=== PATIENT | male | born 1950 | race Caucasian/White ===

== ENCOUNTER 2018-09-15 07:15 | Emergency (ER) | payer MEDICARE, BC ==
[~2018-09-15] VITALS: Ht 177.8 cm; Wt 74.8 kg
[2018-09-15 08:12] LABS: BASOPHILS % 0.3 % (0.0-1.0); EOSINOPHILS # (AUTO) 0.1 (0.0-0.4); EOSINOPHILS % 1.1 % (0.0-6.0); HEMATOCRIT 46.4 % (38.2-49.6); HEMOGLOBIN 15.8 g/dL (14.0-18.0); LYMPHOCYTES # (AUTO) 1.8 (1.0-3.2); LYMPHOCYTES % 25.4 % (18.0-39.1); MEAN CORPUSCULAR HGB CONC 34.1 g/dL (31-35); MEAN CORPUSCULAR VOLUME 93.9 fL (81-99); MONOCYTES # (AUTO) 0.5 (0.2-0.8); MONOCYTES % 7.2 % (4.4-11.3); NEUTROPHILS # (AUTO) 4.7 (2.1-6.9); NEUTROPHILS % 65.7 % (38.7-80.0); PLATELET COUNT 194 x10e3/uL (140-360); RED BLOOD COUNT 4.94 x10e6/uL (4.3-5.7); RED CELL DISTRIBUTION WIDTH 11.7 % (11.7-14.4)
[2018-09-15 08:23] LABS: CLARITY,URINE SL CLOUDY (CLEAR); COLOR,URINE YELLOW (YELLOW)
[2018-09-15 08:24] LABS: KETONES,URINE NEGATIVE (NEGATIVE); LEUKOCYTE ESTERASE ,URINE NEGATIVE (NEGATIVE); NITRITE,URINE POSITIVE (NEGATIVE); PROTEIN,URINE DIPSTICK NEGATIVE (NEGATIVE)
[2018-09-15 08:25] LABS: BILIRUBIN,URINE NEGATIVE (NEGATIVE); URINE UROBILINOGEN 0.2 mg/dL (0.2 - 1)
[2018-09-15 08:29] LABS: ANION GAP 15.6 mmol/L (8-16); BLOOD UREA NITROGEN 13 mg/dL (7-26); BUN/CREATININE RATIO 15 (6-25); CARBON DIOXIDE 24 mmol/L (22-29); CHLORIDE 102 mmol/L (98-107); CREATININE, SERUM 0.87 mg/dL (0.72-1.25); EST GLOMERULAR FILTRATION RATE > 60 ML/MIN (60-); GLUCOSE 170 mg/dL (74-118); POTASSIUM 3.6 mmol/L (3.5-5.1); SODIUM 138 mmol/L (136-145)
[2018-09-15 08:42] LABS: BACTERIA,URINE RARE /HPF; EPITHELIAL CELLS,URINE RARE /LPF; WBC,URINE (MAN) 0-5 /HPF (0-5)
[2018-09-15 08:43] LABS: MUCUS,URINE FEW (RARE)
--- NOTE | 2018-09-15 09:02 | Diagnostic Imaging Report ---
PROCEDURE:ABDOMEN 2 VIEW COMPARISON:None. INDICATIONS:CONSTIPATION FINDINGS:Surgical clips in the right upper quadrant from a previous cholecystectomy. No unusual calcifications are identified. Moderate amount of fecal material present within the colon. No dilated loops of bowel are seen. 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 CONCLUSION:No acute abnormality. Jono Fam D.O. Dictated by: Jono Fam D.O. on 09/15/2018 at 9:11 Electronically approved by: Jono Fam D.O. on 09/15/2018 at 9:11
[2018-09-15] MEDS ORDERED: DOCUSATE SODIUM LIQD 100 MG/10 ML UDC NG ONE (09:15)
[2018-09-15] MEDS ORDERED: LACTULOSE SYRUP 20 GM/30 ML UDC PO ONE (09:15)
[2018-09-15] MEDS ORDERED: CEFTRIAXONE SOD 1 GM VIAL IV NR (09:15)
[2018-09-15 09:19] VITALS: BP 132/87
== END 2018-09-15 09:34 | disposition home or self-care (01) ==
LOC: ER 07:15
DX: K62.89 Other specified diseases of anus and rectum (principal); K59.00 Constipation, unspecified; N39.0 Urinary tract infection, site not specified
CPT/HCPCS: 36415; 74019; 80048; 81001; 85025; 99284; J0696

== ENCOUNTER 2018-12-24 07:37 | Inpatient (IN) | payer MEDICARE, BC ==
[~2018-12-24] VITALS: Ht 177.8 cm; Wt 81.6 kg
--- OUTSIDE RECORDS SUMMARY | 2018-12-24 07:39 | XMS REPORT ---
Author Author [facility] Address Unknown Phone Unavailable Care Team Providers Care Electroencephalographic Technologist Name Role Phone Valentina CALLE Unavailable Unavailable Problems This patient has no known problems. Allergies, Adverse Reactions, Alerts This patient has no known allergies or adverse reactions. Medications This patient has no known medications. Results Test Description Test Time Test Comments Text Results Atomic Results Result Comments ABDOMEN 2 VIEW 2018-09-15 09:12:00 [facility] [address] [address] Patient Name: JAIRO FISHER MR #: [id number] : 1950 Age/Sex: 68/M Req #: [id number] Adm Physician: Ordered by: CEFERINO CALLE MD Report #: [id number] Location: ER Room/Bed: Procedure: [id number] DX/ABDOMEN 2 VIEW Exam Date: 09/15/18 Exam Time: 0805 REPORT STATUS: Signed PROCEDURE: ABDOMEN 2 VIEW COMPARISON: None. INDICATIONS: CONSTIPATION FINDINGS: Surgical clips in the right upper quadrant from a previous cholecystectomy. No unusual calcifications are identified. Moderate amount of fecal material present within the colon. No dilated loops of bowel are seen. 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 CONCLUSION: No acute abnormality. Angie Oshea D.O. Dictated by: Angie Oshea D.O. on 09/15/2018 at 9:11 Electronically approved by: Angie Oshea D.O. on 09/15/2018 at 9:11 Dictated By: ANGIE OSHEA DO 1 Transcribed By: HAWA on 09/15/18911 COPY TO: CEFERINO CALLE MD
[2018-12-24 08:21] LABS: BASOPHILS % 0.2 % (0.0-1.0); EOSINOPHILS # (AUTO) 0.1 (0.0-0.4); EOSINOPHILS % 0.8 % (0.0-6.0); HEMATOCRIT 39.2 % (38.2-49.6); LYMPHOCYTES # (AUTO) 1.1 (1.0-3.2); LYMPHOCYTES % 9.5 % (18.0-39.1); MEAN CORPUSCULAR HEMOGLOBIN 31.5 pg (28-32); MEAN CORPUSCULAR HGB CONC 33.2 g/dL (31-35); MEAN CORPUSCULAR VOLUME 94.9 fL (81-99); MONOCYTES # (AUTO) 0.7 (0.2-0.8); MONOCYTES % 6.3 % (4.4-11.3); NEUTROPHILS # (AUTO) 9.2 (2.1-6.9); NEUTROPHILS % 82.8 % (38.7-80.0); PLATELET COUNT 167 x10e3/uL (140-360); RED BLOOD COUNT 4.13 x10e6/uL (4.3-5.7); RED CELL DISTRIBUTION WIDTH 12.8 % (11.7-14.4)
[2018-12-24 08:35] LABS: INR 0.97; PROTHROMBIN TIME 13.8 seconds (11.9-14.5)
[2018-12-24 08:47] LABS: ALANINE AMINOTRANSFERASE 21 IU/L (0-55); ALBUMIN 3.7 g/dL (3.5-5.0); ALBUMIN/GLOBULIN RATIO 1.4 (0.8-2.0); ALKALINE PHOSPHATASE 47 IU/L (40-150); ANION GAP 14.7 mmol/L (8-16); BLOOD UREA NITROGEN 8 mg/dL (7-26); BUN/CREATININE RATIO 10 (6-25); CALCIUM 8.7 mg/dL (8.4-10.2); CARBON DIOXIDE 22 mmol/L (22-29); CHLORIDE 105 mmol/L (98-107); CREATININE, SERUM 0.84 mg/dL (0.72-1.25); EST GLOMERULAR FILTRATION RATE > 60 ML/MIN (60-); GLUCOSE 151 mg/dL (74-118); POTASSIUM 3.7 mmol/L (3.5-5.1); SODIUM 138 mmol/L (136-145)
--- NOTE | 2018-12-24 08:52 | NUR ---
Dr. Montano places a call to Dr. Recinos.
--- NOTE | 2018-12-24 09:40 | NUR ---
Cream applied to skin to soothe irritation from electrode stickers.
--- NOTE | 2018-12-24 10:35 | NUR ---
500 cc simple irrigation of the womack performed. 700 cc output noted prior to irrigation.
--- NOTE | 2018-12-24 12:41 | NUR ---
Call placed to greenhouse worker regarding continous irrigation equipment.
--- NOTE | 2018-12-24 13:00 | NUR ---
CBI initiated at this time.
[2018-12-24 15:52] LABS: BASOPHILS % 0.1 % (0.0-1.0); EOSINOPHILS % 0.5 % (0.0-6.0); HEMATOCRIT 33.6 % (38.2-49.6); HEMOGLOBIN 11.6 g/dL (14.0-18.0); LYMPHOCYTES # (AUTO) 1.5 (1.0-3.2); LYMPHOCYTES % 16.7 % (18.0-39.1); MEAN CORPUSCULAR HEMOGLOBIN 32.3 pg (28-32); MEAN CORPUSCULAR HGB CONC 34.5 g/dL (31-35); MEAN CORPUSCULAR VOLUME 93.6 fL (81-99); MONOCYTES # (AUTO) 0.6 (0.2-0.8); MONOCYTES % 7.1 % (4.4-11.3); NEUTROPHILS # (AUTO) 6.7 (2.1-6.9); NEUTROPHILS % 75.5 % (38.7-80.0); PLATELET COUNT 141 x10e3/uL (140-360); RED BLOOD COUNT 3.59 x10e6/uL (4.3-5.7); RED CELL DISTRIBUTION WIDTH 12.7 % (11.7-14.4)
[2018-12-24 16:17] LABS: ALANINE AMINOTRANSFERASE 18 IU/L (0-55); ALBUMIN 3.2 g/dL (3.5-5.0); ALBUMIN/GLOBULIN RATIO 1.9 (0.8-2.0); ALKALINE PHOSPHATASE 42 IU/L (40-150); ANION GAP 6.6 mmol/L (8-16); BLOOD UREA NITROGEN 6 mg/dL (7-26); BUN/CREATININE RATIO 9 (6-25); CALCIUM 8.4 mg/dL (8.4-10.2); CARBON DIOXIDE 24 mmol/L (22-29); CHLORIDE 109 mmol/L (98-107); EST GLOMERULAR FILTRATION RATE > 60 ML/MIN (60-); GLUCOSE 105 mg/dL (74-118); POTASSIUM 3.6 mmol/L (3.5-5.1); SODIUM 136 mmol/L (136-145)
--- NOTE | 2018-12-24 18:25 | NUR ---
recvd patient from ER, AAOx3, at bed side, patient not on CBI this time when he transferred from ER, called linen room houseperson to get tubing to start CBI, Patient not in any distress
[2018-12-24 19:00] VITALS: BP_SYST 139; BP_DIAS 71; BP_DIAS 79
--- NOTE | 2018-12-24 19:00 | NUR ---
received report from day nurse. patient is resting comfortably in bed. continues on continuous bladder irrigation. bed is in lowest position and call light is within reach. will continue to monitor patient.
[2018-12-24] MEDS ORDERED: DIOVAN160 MG PO (20:00)
[2018-12-24] MEDS ORDERED: METFORMIN HCL500 MG PO (20:00)
[2018-12-24] MEDS ORDERED: MECLIZINE HCL12.5 MG PO (20:00)
[2018-12-24] MEDS ORDERED: VITAMIN D32000 UNIT PO (20:00)
[2018-12-24] MEDS ORDERED: ACETAMINOPHEN325 M1 PO (20:00)
[2018-12-24] MEDS ORDERED: ATORVASTATIN CA20 MG PO (20:00)
[2018-12-24] MEDS ORDERED: ACETAMINOPHEN 325 MG TAB PO PRN (20:30)
--- NOTE | 2018-12-24 20:38 | NUR ---
Attending physician contacted regarding restarting of home medication. Attending agrees to have home medications restarted. Also received an order to place a consult to Dr Recinos. 's answering service notified of consult and will notify physician.
--- NOTE | 2018-12-24 20:43 | NUR ---
Consulted physician called back, received new orders.
--- NOTE | 2018-12-24 20:45 | NUR ---
Per urologist it is ok to manually irrigate bladder.
[2018-12-24] MEDS: ATORVASTATIN 20 MG TAB PO SCH (21:00)
--- NOTE | 2018-12-24 21:00 | NUR ---
patient yelling out in room complaining of pain in the bladder. bladder has been manually irrigated and no clots are present. Urologist notified. Received new order for pain medications. Will continue to monitor patient for pain.
--- NOTE | 2018-12-24 21:30 | NUR ---
Patient continues to yell out in pain after receiving pain medications. Urologist notified. Received information from urologist on technique that could be employed when manually irrigating the patient's bladder. Urologist's technique employed with great success. patient is pain free and clot's can be seen in the catheter bag. Gibbs is patent and irrigation solution is flowing. will continue to monitor patient for pain.
[2018-12-24] MEDS: PHENAZOPYRIDINE HCL 100 MG TAB PO SCH (22:48)
[2018-12-24] MEDS: ACETAMINOPHEN/CODEINE 300MG - 30MG TAB PO PRN (22:48)
[2018-12-25] VITALS (7 sets, daily range): BP systolic 103–138; BP diastolic 56–74
[2018-12-25 05:02] LABS: BASOPHILS % 0.2 % (0.0-1.0); EOSINOPHILS % 0.1 % (0.0-6.0); HEMOGLOBIN 11.4 g/dL (14.0-18.0); LYMPHOCYTES # (AUTO) 1.2 (1.0-3.2); LYMPHOCYTES % 8.9 % (18.0-39.1); MEAN CORPUSCULAR HEMOGLOBIN 31.2 pg (28-32); MEAN CORPUSCULAR HGB CONC 33.5 g/dL (31-35); MEAN CORPUSCULAR VOLUME 93.2 fL (81-99); MONOCYTES # (AUTO) 0.9 (0.2-0.8); MONOCYTES % 6.7 % (4.4-11.3); NEUTROPHILS # (AUTO) 10.9 (2.1-6.9); NEUTROPHILS % 83.7 % (38.7-80.0); PLATELET COUNT 123 x10e3/uL (140-360); RED BLOOD COUNT 3.65 x10e6/uL (4.3-5.7); RED CELL DISTRIBUTION WIDTH 12.5 % (11.7-14.4)
[2018-12-25 05:22] LABS: ALANINE AMINOTRANSFERASE 18 IU/L (0-55); ALBUMIN 3.2 g/dL (3.5-5.0); ALBUMIN/GLOBULIN RATIO 1.5 (0.8-2.0); ALKALINE PHOSPHATASE 42 IU/L (40-150); ANION GAP 11.6 mmol/L (8-16); BLOOD UREA NITROGEN 7 mg/dL (7-26); BUN/CREATININE RATIO 10 (6-25); CALCIUM 8.5 mg/dL (8.4-10.2); CARBON DIOXIDE 22 mmol/L (22-29); CHLORIDE 107 mmol/L (98-107); CREATININE, SERUM 0.68 mg/dL (0.72-1.25); EST GLOMERULAR FILTRATION RATE > 60 ML/MIN (60-); GLUCOSE 141 mg/dL (74-118); POTASSIUM 3.6 mmol/L (3.5-5.1); SODIUM 137 mmol/L (136-145)
--- NOTE | 2018-12-25 07:00 | NUR ---
report given to day nurse. patient is resting comfortably in bed. no complaints of pain or discomfort noted. bed is in lowest position and call degroot is within reach.
[2018-12-25] MEDS ORDERED: BELLADONNA/OPIUM 30 MG SUPP RC PRN (07:15)
[2018-12-25] MEDS: ACETAMINOPHEN/CODEINE 300MG - 30MG TAB PO PRN (08:03)
[2018-12-25] MEDS: METFORMIN HCL 500 MG TAB PO SCH (08:03)
[2018-12-25] MEDS ORDERED: NON-FORMULARY MEDICATION (Cholecalciferol (Vitamin D3) (Vitamin D3) 1 TAB) PO SCH (09:00)
[2018-12-25] MEDS: PHENAZOPYRIDINE HCL 100 MG TAB PO SCH ×2 (09:02→21:14)
[2018-12-25] MEDS: MECLIZINE HCL 12.5 MG TAB PO SCH (09:02)
[2018-12-25] MEDS: VALSARTAN 160 MG TAB PO SCH (09:02)
[2018-12-25] MEDS: CHOLECALCIFEROL 1,000 UNIT TAB PO SCH (09:02)
[2018-12-25] MEDS: SODIUM CHLORIDE 0.45% 1,000 ML IV SCH ×2 (10:51→21:09)
--- NOTE | 2018-12-25 10:52 | NUR ---
patient transferred to med-surg [address] Recinos. all personal belongings transferred. vitals stable with no distress. family at BS.
[2018-12-25] MEDS: CEFTRIAXONE SOD 2 GM/NS 100 ML 100 ML IV SCH (11:36)
--- NOTE | 2018-12-25 19:50 | NUR ---
CONTINUOUS BLADDER IRRIGATION INFUSING, NO CLOTS NOTED AND PATIENT DENIES PAIN. CALL LIGHT WITHIN EASY REACH, INSTRUCTED TO CALL FOR ASSISTANCE NEEDED.
[2018-12-25] MEDS: ATORVASTATIN 20 MG TAB PO SCH (21:14)
--- NOTE | 2018-12-25 23:30 | NUR ---
PATIENT IS ASLEEP, HE'S EASY TO AROUSE. CONTINUOUS BLADDER INFUSING WITH SOME CLOTS NOTED. PATIENT DENIES PAIN, NO ACUTE DISTRESS OBSERVED.
[2018-12-26 04:00] VITALS: BP 122/71
--- NOTE | 2018-12-26 04:15 | NUR ---
CONDITION STABLE WITHOUT DISTRESS, CBI INFUSING WITH URINE COLOR CHANGING TO ORANGE.
[2018-12-26 06:20] LABS: BASOPHILS % 0.2 % (0.0-1.0); EOSINOPHILS # (AUTO) 0.2 (0.0-0.4); EOSINOPHILS % 2.1 % (0.0-6.0); HEMATOCRIT 32.2 % (38.2-49.6); LYMPHOCYTES # (AUTO) 1.8 (1.0-3.2); LYMPHOCYTES % 18.9 % (18.0-39.1); MEAN CORPUSCULAR HGB CONC 34.2 g/dL (31-35); MEAN CORPUSCULAR VOLUME 93.6 fL (81-99); MONOCYTES # (AUTO) 0.8 (0.2-0.8); MONOCYTES % 8.5 % (4.4-11.3); NEUTROPHILS # (AUTO) 6.7 (2.1-6.9); PLATELET COUNT 131 x10e3/uL (140-360); RED BLOOD COUNT 3.44 x10e6/uL (4.3-5.7); RED CELL DISTRIBUTION WIDTH 12.8 % (11.7-14.4)
[2018-12-26 06:40] LABS: ANION GAP 11.8 mmol/L (8-16); BLOOD UREA NITROGEN 8 mg/dL (7-26); BUN/CREATININE RATIO 11 (6-25); CALCIUM 8.6 mg/dL (8.4-10.2); CARBON DIOXIDE 23 mmol/L (22-29); CHLORIDE 108 mmol/L (98-107); CREATININE, SERUM 0.73 mg/dL (0.72-1.25); EST GLOMERULAR FILTRATION RATE > 60 ML/MIN (60-); GLUCOSE 114 mg/dL (74-118); POTASSIUM 3.8 mmol/L (3.5-5.1); SODIUM 139 mmol/L (136-145)
[2018-12-26 08:48] VITALS: BP 112/65
[2018-12-26] MEDS: VALSARTAN 160 MG TAB PO SCH (09:00)
[2018-12-26 09:18] VITALS: BP 112/65
[2018-12-26] MEDS: SODIUM CHLORIDE 0.45% 1,000 ML IV SCH ×3 (09:18→18:07)
[2018-12-26] MEDS: PHENAZOPYRIDINE HCL 100 MG TAB PO SCH ×3 (09:18→20:35)
[2018-12-26] MEDS: CHOLECALCIFEROL 1,000 UNIT TAB PO SCH (09:18)
[2018-12-26] MEDS: CEFTRIAXONE SOD 2 GM/NS 100 ML 100 ML IV SCH (09:18)
[2018-12-26] MEDS: METFORMIN HCL 500 MG TAB PO SCH (09:18)
[2018-12-26] MEDS: MECLIZINE HCL 12.5 MG TAB PO SCH (09:18)
[2018-12-26 12:30] VITALS: BP 110/71
[2018-12-26] MEDS ORDERED: MAGNESIUM HYDROXIDE 30 ML UDC PO PRN (13:30)
[2018-12-26] MEDS ORDERED: BISACODYL 10 MG SUPP PR PRN (13:30)
[2018-12-26] MEDS ORDERED: MAGNESIUM HYDROXIDE 30 ML UDC PO NR (13:30)
--- NOTE | 2018-12-26 13:43 | NUR ---
SOCIAL WORK INITIAL ASSESSMENT Recorder Of Deeds to bedside to discuss plan of care with patient/family. CM/SW role and care transitions discussed. Anticipated discharge plan discussed along with duration of care. CM/SW discussed patients right to make decisions in care. CM/SW work hours given. Patient lives: IN HOUSE WITH MATT [phone] CELL [phone] Admit/Transfer: VIA ED POA/Emergency contact: MATT [phone] HOME OR CELL IS [phone] Current/Previous Home Health: NONE PCP/Follow-up Care: DENI Current/Previous DME: CATHETER BAG Other Services: NONE Employment Status: RETIRED Areas of Concerns: NONE Referral Needs: NONE Education Needs: NONE IMM/MORAN given and signed (if applicable): IMM Goal for discharge: RETURN HOME WITH EDUCATION ON NEEDS OF CATHETER CM/SW left business card at the bedside with contact information. Name and number was also written on the patients whiteboard. Patient verbalized understanding of discussion. CM will follow-up with ongoing discharge and transition of care needs.
[2018-12-26] MEDS: SENNOSIDES 8.6 MG TAB PO SCH ×2 (14:31→17:35)
[2018-12-26 17:17] VITALS: BP 127/65
--- NOTE | 2018-12-26 19:00 | NUR ---
Report received and rounds completed, no complaints or concerns at this time. In bed with family at bedside.
[2018-12-26 20:00] VITALS: BP 116/65
[2018-12-26] MEDS: ATORVASTATIN 20 MG TAB PO SCH (20:35)
[2018-12-26] MEDS: ACETAMINOPHEN/CODEINE 300MG - 30MG TAB PO PRN (20:47)
[2018-12-27] VITALS (8 sets, daily range): BP systolic 108–140; BP diastolic 57–82
--- NOTE | 2018-12-27 | NUR ---
CBI flowing, womack remains patent with orange urine with small clots. Tolerating well. No c/o or concerns at this time. at bedside.
[2018-12-27] MEDS: ACETAMINOPHEN/CODEINE 300MG - 30MG TAB PO PRN ×4 (00:40→21:50)
--- NOTE | 2018-12-27 05:19 | NUR ---
Tape securing womack cath reinforced and womack care performed, tolerated well. CBI flowing with light dominik with clots, no obstructions or complaints. Will continue to monitor. Addendum: 12/27/18 at 0523 by Katya Uriostegui RN CBI flowing, noted yellow/orange urine in tube with small clots.
[2018-12-27] MEDS: METFORMIN HCL 500 MG TAB PO SCH (08:03)
[2018-12-27] MEDS: SENNOSIDES 8.6 MG TAB PO SCH ×2 (08:03→16:36)
[2018-12-27] MEDS: MECLIZINE HCL 12.5 MG TAB PO SCH (08:03)
[2018-12-27] MEDS: CHOLECALCIFEROL 1,000 UNIT TAB PO SCH (08:03)
[2018-12-27] MEDS: VALSARTAN 160 MG TAB PO SCH (08:03)
[2018-12-27] MEDS: PHENAZOPYRIDINE HCL 100 MG TAB PO SCH ×3 (08:03→21:50)
[2018-12-27] MEDS: CEFTRIAXONE SOD 2 GM/NS 100 ML 100 ML IV SCH (08:03)
[2018-12-27] MEDS ORDERED: PEG (High)/E-LYTE SOLN 4,000 ML BTL PO PRN (10:30)
[2018-12-27] MEDS ORDERED: MINERAL OIL 132 ML BTL PR PRN (10:30)
--- NOTE | 2018-12-27 11:11 | NUR ---
IRRIGATION STOPPED PER MD ELLIS ORDERS. INSTRUCTED PT TO CALL IF PAIN OCCURRED URINE IS LOOKING CLEAR ORANGE IN COLOR
[2018-12-27] MEDS: ATORVASTATIN 20 MG TAB PO SCH (21:50)
--- NOTE | 2018-12-27 21:50 | NUR ---
PATIENT C/O PAIN TO THE PENIS WITH PAIN SCORE #5, MEDICATED WITH TYLENOL #3 ORDERED. ASSISTED WITH ADLS, FAMILY MEMBERS VISITING WITH THE PATIENT AT THIS TIME.
[2018-12-28 00:57] VITALS: BP 118/58
--- NOTE | 2018-12-28 01:11 | NUR ---
WALKING ROUNDS MADE, PATIENT IS SOUNDLY ASLEEP WITHOUT RESPIRATORY DISTRESS. URINE COLOR REMAINS ORANGE, CALL LIGHT WITHIN EASY REACH.
--- NOTE | 2018-12-28 04:13 | NUR ---
PATIENT ENCOURAGED TO REPOSITION IN BED, HE C/O MILD PAIN TO THE PENIS WITH PAIN SCORE #2. MEDICATED WITH TYLENOL #3 ORDERED, CALL LIGHT WITHIN EASY REACH AND HIS IS AT THE BEDSIDE.
[2018-12-28 04:41] VITALS: BP 123/70
[2018-12-28 07:03] LABS: BASOPHILS % 0.2 % (0.0-1.0); EOSINOPHILS # (AUTO) 0.2 (0.0-0.4); EOSINOPHILS % 2.5 % (0.0-6.0); HEMATOCRIT 32.2 % (38.2-49.6); HEMOGLOBIN 10.8 g/dL (14.0-18.0); LYMPHOCYTES # (AUTO) 1.8 (1.0-3.2); LYMPHOCYTES % 21.6 % (18.0-39.1); MEAN CORPUSCULAR HEMOGLOBIN 31.6 pg (28-32); MEAN CORPUSCULAR HGB CONC 33.5 g/dL (31-35); MEAN CORPUSCULAR VOLUME 94.2 fL (81-99); MONOCYTES # (AUTO) 0.6 (0.2-0.8); MONOCYTES % 7.7 % (4.4-11.3); NEUTROPHILS # (AUTO) 5.5 (2.1-6.9); NEUTROPHILS % 67.8 % (38.7-80.0); PLATELET COUNT 169 x10e3/uL (140-360); RED BLOOD COUNT 3.42 x10e6/uL (4.3-5.7); RED CELL DISTRIBUTION WIDTH 12.4 % (11.7-14.4)
[2018-12-28 07:17] LABS: ANION GAP 9.3 mmol/L (8-16); BLOOD UREA NITROGEN 10 mg/dL (7-26); BUN/CREATININE RATIO 14 (6-25); CALCIUM 8.5 mg/dL (8.4-10.2); CARBON DIOXIDE 26 mmol/L (22-29); CHLORIDE 108 mmol/L (98-107); EST GLOMERULAR FILTRATION RATE > 60 ML/MIN (60-); GLUCOSE 105 mg/dL (74-118); POTASSIUM 3.3 mmol/L (3.5-5.1); SODIUM 140 mmol/L (136-145)
[2018-12-28 08:33] VITALS: BP 137/71
[2018-12-28] MEDS: METFORMIN HCL 500 MG TAB PO SCH (08:55)
[2018-12-28] MEDS: SENNOSIDES 8.6 MG TAB PO SCH ×2 (08:55→16:41)
[2018-12-28] MEDS: MECLIZINE HCL 12.5 MG TAB PO SCH (08:55)
[2018-12-28] MEDS: CEFTRIAXONE SOD 2 GM/NS 100 ML 100 ML IV SCH (08:55)
[2018-12-28] MEDS: PHENAZOPYRIDINE HCL 100 MG TAB PO SCH ×2 (08:56→14:20)
[2018-12-28] MEDS: VALSARTAN 160 MG TAB PO SCH (08:56)
[2018-12-28] MEDS: CHOLECALCIFEROL 1,000 UNIT TAB PO SCH (08:56)
[2018-12-28] MEDS: DOCUSATE SODIUM 100 MG CAP PO SCH ×2 (09:01→16:41)
[2018-12-28] MEDS: ACETAMINOPHEN/CODEINE 300MG - 30MG TAB PO PRN ×2 (09:01→14:41)
--- NOTE | 2018-12-28 09:23 | NUR ---
IMM EXPLAINED, SIGNED BY PT'S (PT LEGALLY BLIND) AND PLACED ON CHART COPY TO PT IN CARE TRANSITION FOLDER
--- NOTE | 2018-12-28 10:06 | NUR ---
CORNELL D/C AT THIS TIME. PT TOLERATED WELL. INSTRUCTED TO USE URINAL WITH EACH VOID. WILL COLLECT FOR SERIAL URINES. PT AND SPOUSE VERBALIZE UNDERSTANDING.
[2018-12-28 11:18] VITALS: BP 137/71
[2018-12-28] MEDS ORDERED: POTASSIUM CHLORIDE 10MEQ EA PO ONE (11:30)
--- NOTE | 2018-12-28 12:32 | NUR ---
PT VOIDED AT THIS TIME.
[2018-12-28 12:36] VITALS: BP 125/68
[2018-12-28 16:16] VITALS: BP 114/66
--- NOTE | 2018-12-28 17:38 | NUR ---
SPOKE TO DR. Jessie ZUNIGA STATES PT CAN D/C HOME, HE HAS RX FOR PAIN AND ANTIBIOTICS AT HOME. LEFT MESSAGE FOR DR. LORD FOR D/C HOME ORDERS AWAITING CALL BACK.
--- NOTE | 2018-12-28 18:13 | NUR ---
RECEIVED CALL BACK FROM DR. LORD. D/C ORDER RECEIVED.
--- NOTE | 2018-12-28 18:27 | NUR ---
LEFT AC IV D/C AND PRESSURE DRESSING APPLIED. D/C INSTRUCTIONS GIVEN. PT AND SPOUSE VERBALIZE UNDERSTANDING. PT AWAITING RIDE HOME.
--- NOTE | 2018-12-30 07:16 | Discharge Summary ---
FINAL DIAGNOSES: 1. Gross hematuria, had been persistent, status post TURP, outpatient procedure. 2. Urinary tract infection. 3. Acute blood loss anemia. 4. Enlarged prostate with urinary retention. SUMMARY: The patient is a 68 years old male with urinary retention and enlarged prostate, status post TURP procedure, outpatient procedure. Postoperatively, the patient subsequently went home with a Gibbs catheter, but with gross hematuria. The patient was having difficulty urinating even with a Gibbs catheter. He developed clotting and caused significant pain. The patient came to the hospital. Continuous irrigation of the urinary bladder was initiated and continued. Subsequently, his Gibbs catheter discontinued and his hematuria is improving. He had acute blood loss anemia, secondary to hematuria, but he did not require blood transfusion. The patient was stable. Subsequently, the patient discharged home. Continue with home medication, antibiotic, pain medication, and medication for his prostate. The patient is stable. He will follow up with his urologist, Dr. Kiet Recinos. Dr. Kiet Recinos knows the patient very well, as he did the procedures and also continues to care for the patient here as a disaster recovery consultant. MD ARJUN Garcias/CRYSTAL /[id number]
== END 2018-12-28 19:01 | disposition home or self-care (01) | DRG 696 ==
LOC: ER 07:37 → ERHOLD 16:07 → IMCU 18:15 → OBSVTOIN 12-25 09:54 → MED/SURG 12-25 10:51
PROVIDERS: ADMIT Internal Medicine; ATTEND Internal Medicine
DX: R31.0 Gross hematuria (principal); D62 Acute posthemorrhagic anemia; N40.1 Benign prostatic hyperplasia with lower urinary tract symptoms; R33.8 Other retention of urine; Z87.891 Personal history of nicotine dependence; Z88.1 Allergy status to other antibiotic agents; Z88.8 Allergy status to other drugs, medicaments and biological substances; Z98.890 Other specified postprocedural states; I10 Essential (primary) hypertension; E11.9 Type 2 diabetes mellitus without complications; K59.00 Constipation, unspecified; D69.6 Thrombocytopenia, unspecified; N39.0 Urinary tract infection, site not specified; Z79.84 Long term (current) use of oral hypoglycemic drugs
CPT/HCPCS: 36415; 80048; 80053; 82948; 85025; 85610; 86850; 86900; 93005; 97139; 99284; G0378; J0696

== ENCOUNTER → 2019-05-03 | Outpatient (CLI) | payer MEDICARE, BC ==
[~2019-05-03] MED LIST: ACETAMINOPHEN325 M1 PO; ATORVASTATIN CA20 MG PO; DIOVAN160 MG PO; MECLIZINE HCL12.5 MG PO; METFORMIN HCL500 MG PO; VITAMIN D32000 UNIT PO
--- NOTE | 2019-05-03 14:14 | Diagnostic Imaging Report ---
Exam: KUB - 2 views Clinical History: Renal calculus. Comparison None. Findings: Bowel gas partially obscures visualization of the kidneys. There is a 3 mm calcification overlying the left upper kidney. No evidence of calcification overlying the right kidney or the expected course of the ureters. Nonobstructive bowel gas pattern. No acute osseous abnormality. Impression: Possible 3 mm left upper pole renal stone. Signed by: Dr. wGen Menon MD on 05/03/2019 2:10 PM
== END ==
LOC: RAD 13:05
PROVIDERS: ATTEND Urology
DX: N20.0 Calculus of kidney (principal)
CPT/HCPCS: 74018

== ENCOUNTER 2019-12-06 22:51 | Emergency (ER) | payer MEDICARE, BC ==
[~2019-12-06] VITALS: Ht 177.8 cm; Wt 69.4 kg
[2019-12-06] MEDS ORDERED: TRIMETHOPRIM/SULFAMETHOXAZOLE 160-800 MG TAB ONE (23:52)
[2019-12-07] MEDS ORDERED: TRIMETHOPRIM/SULFAMETHOXAZOLE 160-800 MG TAB PO ONE
--- OUTSIDE RECORDS SUMMARY | 2019-12-07 19:31 | XMS REPORT | Encounter Summary ---
Author Organization Unknown Address [address] [place] [address] Phone [phone] Care Team Providers Care Radio Interference Expert Name Role Phone Dr. Onel Rolle 3 [phone] Onel Rolle MD 3 [phone] Tk Alejandra MD 105 [phone] Cam Luther MD 107 [phone] Kiet Recinos MD 115 [phone] Reason for Visit Type 2 diabetes mellitus; Essential hypertension; Hyperlipidemia; Dizziness; foot problem Instructions 1. Body mass index 20-24 - normal 2. Hyperlipidemia atorvastatin 20 mg tablet lipid panel, serum 3. Vertigo meclizine 25 mg tablet 4. Type 2 diabetes mellitus metformin 500 mg tablet diabetic ophthalmology referral HbA1c (hemoglobin A1c), blood CMP, serum or plasma 5. Essential hypertension valsartan 160 mg tablet 6. Dizziness 7. Acute urinary tract infection Discussion Note: None recorded. Patient educational handouts: No information available. Plan of Care Patient Instructions continue al meds /exercise/drink 8 cups water /d Reminders Provider Appointments Return to Office on or around 07/20/2019 Onel Rolle MD Lab Lipid Panel, Serum 04/19/2019 [facility] HbA1C (Hemoglobin a1C), Blood 04/19/2019 [facility] CMP, Serum or Plasma 04/19/2019 [facility] Referral Diabetic Ophthalmology Referral 04/19/2019 Procedures None recorded. Surgeries None recorded. Imaging None recorded. Medications Name Start Date atorvastatin 20 mg tablet Take 1 tablet every day by oral route. meclizine 25 mg tablet Take 2 tablets twice a day by oral route. metformin 500 mg tablet Take 1 tablet every day by oral route for 90 days. One-A-Day Men's 50 Plus 400 mcg-20 mcg-370 mcg tablet Take 1 tablet every day by oral route. sulfamethoxazole 800 mg-trimethoprim 160 mg tablet take 1 tablet twice daily (down to the last 2 pills) valsartan 160 mg tablet TAKE 1 TABLET BY MOUTH EVERY DAY DUE Vitamin D3 2,000 unit capsule Take 1 capsule every day by oral route. Medications Administered None recorded. Vitals Height Weight BMI Blood Pressure 5 ft 9 in 157 lbs 23.2 kg/m2 118/78 mm[Hg] Lab Results None recorded. Allergies Code Code System Name Reaction Severity Status Onset 39130 RxNorm Levofloxacin Active 09/15/2018 64847 RxNorm Lisinopril Active 09/15/2018 823200 RxNorm Levaquin Active Problems Name Status Onset Date Source Type 2 Diabetes Mellitus Active Hyperlipidemia Active Essential Hypertension Active Blood in Urine Active External Dizziness Active Procedures Date Name Performed by 03/03/2019 Procedure on Tooth Information not available 12/23/2018 Prostatectomy (Turp) Information not available 10/03/2016 Eye Surgery Information not available 11/03/2014 Colonoscopy Information not available Vaccine List Vaccine Type influenza, high dose seasonal 08/21/2017 07/08/20180.5 mL pneumococcal conjugate PCV 13 10/07/20180.5 mL pneumococcal polysaccharide PPV23 09/03/2017 zoster subunit 04/06/20180.5 mL 11/11/20180.5 mL Social History Smoking Status Never Smoker Past Encounters 04/19/2019 Body Mass Index 20-24 - Normal; Hyperlipidemia; Vertigo; Type 2 Diabetes Mellitus; Essential Hypertension; Dizziness; Acute Urinary Tract Infection Onel Rolle MD: [address] [place] [phone], Ph. History of Present Illness Note:f/u chronic conditions,compliant with meds ,walks 30 mins /d<div> uti-dehydration [facility] 04/10-08/21,has urology f/u 3 days-asymptomatic</div> Review of Systems:ROS as noted in the HPI Review of Systems None recorded. Physical Exam Cardiology Exam Reported By: Patient Constitutional: General Appearance: well-developed, appears stated age. Level of Distress: comfortable Psychiatric: Mental Status: alert, normal affect. Orientation: oriented to time, place, and person. Insight: good judgment Eyes: Lids and Conjunctivae: non-injected, anicteric, no discharge, no pallor, no arcus senilis, no xanthelasma. Pupils: PERRLA Neck: Neck: supple, trachea midline, no masses, FROM. Carotid Arteries: bilateral normal upstroke, no bruits, no thrills. Cervical Lymph Nodes: non tender, not enlarged. Thyroid: not enlarged, non tender, no nodules Lungs: Respiratory Effort: unlabored. Chest Exam: normal curvature, no thoracic deformity, no chest wall tenderness. Percussion: resonant. Auscultation: clear, no wheezing, no rales, no rhonchi Cardiovascular: Precordial Exam: non displaced focal PMI, no heaves, no precordial thrills. Rate And Rhythm: regular. Heart Sounds: normal S1, physiologically split S2, no rub, no gallop, no click. Systolic Murmur: not heard. Diastolic Murmur: not heard. Extremities: no cyanosis, no edema, no peripheral signs of emboli Skin: Inspection and Palpation: warm and dry. Nails: no clubbing
--- OUTSIDE RECORDS SUMMARY | 2019-12-07 19:31 | XMS REPORT | Encounter Summary ---
Author Organization Unknown Address [address] [place] [address] Phone [phone] Care Team Providers Care Ppap Coordinator Name Role Phone Dr. Onel Rolle 3 [phone] Onel Rolle MD 3 [phone] Luis Alberto Alejandra MD 105 [phone] Cam Luther MD 107 [phone] Kiet Recinos MD 115 [phone] Reason for Visit Type 2 diabetes mellitus; Hyperlipidemia; Essential hypertension Instructions 1. Type 2 diabetes mellitus metformin 500 mg tablet HbA1c (hemoglobin A1c), blood CMP, serum or plasma lipid panel, serum 2. Essential hypertension valsartan 160 mg tablet 3. Influenza vaccination Fluzone High-Dose (PF) 180 mcg/0.5 mL intramuscular syringe 4. Body mass index 25-29 - overweight learning about healthy weight 5. Hyperlipidemia high cholesterol: care instructions Discussion Note: None recorded. Plan of Care Patient Instructions continue meds/diet/exercise Reminders Provider Appointments Return to Office on or around 10/25/2019 Onel Rolle MD Lab HbA1C (Hemoglobin a1C), Blood 07/26/2019 [facility] CMP, Serum or Plasma 07/26/2019 [facility] Lipid Panel, Serum 07/26/2019 [facility] Referral None recorded. Procedures None recorded. Surgeries None recorded. Imaging [...] 1 tablet every day by oral route. valsartan 160 mg tablet TAKE 1 TABLET BY MOUTH EVERY DAY DUE Vitamin D3 2,000 unit capsule Take 1 capsule every day by oral route. Medications Administered None recorded. Vitals Height Weight BMI Blood Pressure 5 ft 9 in 159.4 lbs 23.5 kg/m2 120/83 mm[Hg] Lab Results None recorded. Allergies Code Code System Name Reaction Severity Status Onset 49251 RxNorm Levofloxacin Active 09/15/2018 76907 RxNorm Lisinopril Active 09/15/2018 156190 RxNorm Levaquin Active Problems Name Status Onset Date Source Type 2 Diabetes Mellitus Active Hyperlipidemia Active Essential Hypertension Active Blood in Urine Active Dizziness Active Procedures Date Name Performed by 03/03/2019 Procedure on Tooth Information not available 12/23/2018 Prostatectomy (Turp) Information not available 10/03/2016 Eye Surgery Information not available 11/03/2014 Colonoscopy Information not available Vaccine List Vaccine Type influenza, high dose seasonal 08/21/2017 07/08/20180.5 mL pneumococcal conjugate PCV 13 10/07/20180.5 mL pneumococcal polysaccharide PPV23 09/03/2017 zoster subunit 04/06/20180.5 mL 11/11/20180.5 mL Social History Tobacco Smoking Status Never Smoker Past Encounters 07/26/2019 Type 2 Diabetes Mellitus; Essential Hypertension; Influenza Vaccination; Body Mass Index 25-29 - Overweight; Hyperlipidemia Onel Rolle MD: [address] [place] [address], Ph. History of Present Illness Note:f/u htn/hld dm2 compliant with meds /diet /exercise Review of Systems:ROS as noted in the [...]
--- OUTSIDE RECORDS SUMMARY | 2019-12-07 19:31 | XMS REPORT | Encounter Summary ---
Author Organization Unknown Address [address] [place] [address] Phone [phone] Care Team Providers Care Kier Boiler Name Role Phone Dr. Onel Rolle 3 [phone] Onel Rolle MD 3 [phone] Luis Alberto Alejandra MD 105 [phone] Cam Luther MD 107 [phone] Kiet Recinos MD 115 [phone] Reason for Visit Type 2 diabetes mellitus; Essential hypertension; Hyperlipidemia; diabetic foot exam Instructions 1. Type 2 diabetes mellitus metformin 500 mg tablet HbA1c (hemoglobin A1c), blood microalbumin/creatinine, mass ratio, urine 2. Hyperlipidemia high cholesterol: care instructions atorvastatin 20 mg tablet lipid panel, serum 3. Essential hypertension valsartan 160 mg tablet CMP, serum or plasma 4. Onychomycosis of toenails terbinafine HCl 250 mg tablet 5. Body mass index 20-24 - normal 6. Senile purpura Discussion Note: None recorded. Plan of Care Reminders Provider Appointments None recorded. Lab HbA1C (Hemoglobin a1C), Blood 10/25/2019 [facility] Lipid Panel, Serum 10/25/2019 [facility] CMP, Serum or Plasma 10/25/2019 [facility] Microalbumin/creatinine, Mass Ratio, Urine 10/25/2019 [facility] Referral None recorded. Procedures [...] 1 tablet every day by oral route. terbinafine HCl 250 mg tablet Take 1 tablet every day by oral route. valsartan 160 mg tablet TAKE 1 TABLET BY MOUTH EVERY DAY DUE Vitamin D3 50 mcg (2,000 unit) capsule Take 1 capsule every day by oral route. Medications Administered None recorded. Vitals Height Weight BMI Blood Pressure 5 ft 9 in 159 lbs 23.5 kg/m2 110/78 mm[Hg] Results Lab Results None recorded. Allergies Code Code System Name Reaction Severity Status Onset 17391 RxNorm Levofloxacin Active 09/15/2018 57645 RxNorm Lisinopril Active 09/15/2018 316362 RxNorm Levaquin Active Problems Name Status Onset Date Source Hyperlipidemia Due to Type 2 Diabetes Mellitus Active 10/18/2019 Type 2 Diabetes Mellitus Active Hyperlipidemia Active Essential Hypertension Active Blood in Urine Active Procedures Date Name Performed by 03/03/2019 Procedure on Tooth Information not available 12/23/2018 Prostatectomy (Turp) Information not available 10/03/2016 Eye Surgery Information not available 11/03/2014 Colonoscopy Information not available Vaccine List Vaccine Type influenza, high dose seasonal 08/21/2017 07/08/20180.5 mL 07/26/20190.5 mL pneumococcal conjugate PCV 13 10/07/20180.5 mL pneumococcal polysaccharide PPV23 09/03/2017 zoster recombinant 04/06/20180.5 mL 11/11/20180.5 mL Social History Tobacco Smoking Status Never Smoker Past Encounters 10/25/2019 Type 2 Diabetes Mellitus; Hyperlipidemia; Essential Hypertension; Onychomycosis of Toenails; Body Mass Index 20-24 - Normal; Senile Purpura Bharathi Cheryl Benjamin, DO: [address] [place] [address], Ph. History of Present Illness Note:<div>Patient presents to the clinic today with the following concern(s):< div>
</div><div>1) HLD</div></div>- current meds: Atorvastatin 20mg
- medication compliance: {{daily*|somewhat daily|none}}
- adverse reactions: {{yes|no*}}
- diet and exercise: {{yes*|no}}
- Diabetic: {{yes*|no}}
- ASCVD 10y risk: unk<div>

</div><div>2) HTN
- current med(s): Valsartan 160mg
- medication compliance: {{daily*|somewhat daily|none}}
- home BP range: {{& gt;200|180s|170s|160s|150s|140s|130s|120s|110s*|100s|90s|80s|70s}} / {{& gt;200|180s|170s|160s|150s|140s|130s|120s|110s|100s|90s|80s*|70s}}
- adverse reactions: {{yes|no*}}
- diet and exercise: {{yes*|no}}
- Denies: {{HAs, CP, SOB, acute visual changes, leg swelling#|HAs|CP|SOB|acute visual changes|leg swelling|none}}
- Endorses: {{HAs|CP|SOB|acute visual changes|leg swelling|none*}}

<div>3) T2DM
- last A1c: 5.7 ( 07/26/2019)
- current med(s): Metformin 500mg daily</div><div>- medication compliance: {{daily*|somewhat daily|none}}
- adverse reactions: {{no*|yes}}
- home bg range: AM {{70-80s#|& gt;200|180s|170s|160s|150s|140s|130s|120s|110s|100s|90s|80s|70s}}
- diet and exercise: {{no|yes*}}
- Denies: {{CP, polydipsia, acute visual changes#|polyuria|polydipsia|hypoglycemic episodes|acute visual changes|CP}}
- Endorses: {{polyuria*|polydipsia|hypoglycemic episodes|acute visual changes|CP }}
- Prescribed ARB & Statin: {{yes*|no}}
- Eye Exam within last year: {{yes*|no}}
- Diabetic Foot Exam within last year: {{yes|no*}}
< /div></div> Review of Systems Comprehensive General Adult ROS Reported By: Patient Constitutional: Constitutional: no fever Cardiovascular: Cardiovascular: no chest pain, no shortness of breath when walking Respiratory: Respiratory: no cough, no wheezing, no shortness of breath Gastrointestinal: Gastrointestinal: no abdominal pain, no nausea, no vomiting, no constipation, no diarrhea Musculoskeletal: Musculoskeletal: no muscle aches, no muscle weakness, no arthralgias/joint pain, no swelling in the extremities Physical Exam General Adult Exam (male) Reported By: Patient Constitutional: General Appearance: healthy-appearing, well-nourished, well-developed. Level of Distress: NAD. Ambulation: ambulating normally Cardiovascular: Heart Auscultation: RRR, normal S1, normal S2, no murmurs, no rubs, no gallops Abdomen: Bowel Sounds: normal. Inspection and Palpation: soft, non-distended, no tenderness, no guarding Musculoskeletal:: Motor Strength and Tone: normal, normal tone. Joints, Bones, and Muscles: normal movement of all extremities. Extremities: no edema Skin: Nails: abnormal"
== END 2019-12-07 00:15 | disposition home or self-care (01) ==
LOC: FSED 22:51
DX: R30.0 Dysuria (principal); N30.91 Cystitis, unspecified with hematuria; H54.7 Unspecified visual loss; Z85.46 Personal history of malignant neoplasm of prostate
CPT/HCPCS: 81003; 87086; 87186; 99283

== ENCOUNTER 2020-01-15 22:09 | Emergency (ER) | payer MEDICARE, BC ==
[~2020-01-15] VITALS: Ht 177.8 cm; Wt 69.4 kg
[2020-01-15] MEDS ORDERED: SODIUM CHLORIDE 0.9% 100 ML ONE (22:45)
[2020-01-15] MEDS ORDERED: ONDANSETRON HCL INJ 2MG/ML 2ML 2 MG/ML VIAL ONE (22:45)
[2020-01-15] MEDS ORDERED: KETOROLAC TROMETHAMINE 30 MG/ML VIAL ONE (22:45)
[2020-01-15] MEDS ORDERED: CEFTRIAXONE SOD 1 GM VIAL ONE (22:45)
[2020-01-15] MEDS ORDERED: SODIUM CHLORIDE 0.9% 1000ML 1,000 ML ONE (22:46)
[2020-01-15] MEDS: CEFTRIAXONE SOD 1 GM VIAL IV ONE (22:55)
[2020-01-15] MEDS: SODIUM CHLORIDE 0.9% 1000ML 1,000 ML IV STA (22:58)
[2020-01-15] MEDS: ONDANSETRON HCL INJ 2MG/ML 2ML 2 MG/ML VIAL IV ONE (23:00)
[2020-01-15] MEDS: KETOROLAC TROMETHAMINE 30 MG/ML VIAL IV ONE (23:02)
--- NOTE | 2020-01-15 23:25 | NUR ---
ROCEPHIN IVPB COMPLETED . PT TOLERATED WELL. NO REDNESS/SWELLING TO SITE. IV BOLUS FLOWING WELL.
[2020-01-16 00:56] VITALS: BP 118/67
== END 2020-01-16 00:30 | disposition home or self-care (01) ==
LOC: FSED 22:09
DX: R30.0 Dysuria (principal); R10.2 Pelvic and perineal pain; N30.01 Acute cystitis with hematuria; I10 Essential (primary) hypertension; E11.9 Type 2 diabetes mellitus without complications; N28.9 Disorder of kidney and ureter, unspecified
CPT/HCPCS: 81003; 87086; 87186; 96374; 96375; 96376; 99283; J0696; J1885; J2405; J7030; J7050

== ENCOUNTER → 2020-02-10 | Outpatient (CLI) | payer MEDICARE, BC ==
[~2020-02-10] MED LIST changes: +CIPROFLOXACIN250 MG PO; +IOPAMIDOL 370 MG/ML 200 ML INFUS..BTL INJ ONE; +NITROFURANTOIN100 MG PO; +PHENAZOPYRIDIN100 MG PO; +SODIUM CHLORIDE 0.9% 250ML 250 ML ONE; +TERBINAFINE HC250 MG PO; +TYLENOL # 31 EA PO
[2020-02-10 10:25] LABS: BLOOD UREA NITROGEN 11 mg/dL (7-26); BUN/CREATININE RATIO 9 (6-25); CREATININE, SERUM 1.17 mg/dL (0.72-1.25); EST GLOMERULAR FILTRATION RATE > 60 ML/MIN (60-)
--- NOTE | 2020-02-10 12:31 | Diagnostic Imaging Report ---
CT of the abdomen and pelvis, without and with contrast. History: Microscopic hematuria. Comparison: None available. Technique: Multidetector CT scanning of the abdomen and pelvis was performed from the level of the lung bases to the inferior pubic rami before and after intravenous administration of contrast according to the CT urogram protocol. Coronal, sagittal, and three-dimensional reformations were obtained. RADIATION DOSE: Total DLP: 615.18 mGy*cm Dose modulation, iterative reconstruction, and/or weight based adjustment of the mA/kV was utilized to reduce the radiation dose to as low as reasonably achievable. FINDINGS: The visualized lungs demonstrate no significant abnormalities. The imaged portion of the heart is unremarkable. The liver is normal in size and attenuation on this noncontrast enhanced examination. The gallbladder is surgically absent. There is no biliary ductal dilatation. The stomach, spleen, pancreas, and bilateral adrenal mass demonstrate an unremarkable noncontrast appearance. The kidneys are normal in size and location. There is a 3 mm nonobstructing stone identified within the superior pole the left kidney. An additional punctate nonobstructing stone versus vascular calcification is identified within the interpolar region of the left kidney. Both kidneys concentrate and excrete contrast material properly. There are bilateral renal cysts. The largest on the right measures 1.4 x 1.7 cm. The largest on the left measures 0.9 x 1.1 cm. There is no evidence for solid renal mass or hydronephrosis. There is a single collecting system and ureter are identified bilaterally. There is no evidence for ureteral dilatation, filling defect, or stone, noting that the distal right ureter is not optimally contrast opacified. Multiple calcifications/stones are noted within the lumen of the urinary bladder on the precontrast phase measuring up to 1.7 cm along the anterior wall. There is mild circumferential wall thickening of the urinary bladder which may be related to underdistention. The prostate is prominent and contains calcifications. Incidentally noted are penile calcifications. The abdominal aorta is normal course and caliber with mild atherosclerotic calcifications. The IVC is unremarkable. Please note evaluation the bowel is limited without the use of enteric contrast material. The visualized small and large bowel demonstrate no evidence of obstruction or inflammation. Extensive diverticula are noted within the colon without evidence for acute diverticulitis. There is no ascites or intraperitoneal free air. No abnormally enlarged lymph nodes are identified within the abdomen or pelvis. The osseous structures demonstrate no evidence for acute fracture or destructive process. The extraperitoneal soft tissues are unremarkable. IMPRESSION: 1. Nonobstructive left-sided nephrolithiasis. No evidence for solid renal mass, obstructive uropathy, or ureteral abnormality. 2. Bilateral renal cysts. 3. Multiple calcifications/stones noted within the urinary bladder measuring up to 1.7 cm. Mild circumferential wall thickening noted of the urinary bladder which may relate to underdistention. A cystitis could have a similar appearance and correlation with symptomatology/urinalysis is recommended. 4. Incidentally noted penile calcifications which can be seen in the setting of Peyronie disease 5. Diverticulosis coli without evidence of acute diverticulitis. Signed by: Dr. Zane Sharp MD on 02/10/2020 12:28 PM
== END ==
LOC: CT 09:40
PROVIDERS: ATTEND Urology
DX: R31.21 Asymptomatic microscopic hematuria (principal)
CPT/HCPCS: 36415; 74178; 82565; 84520; J7050; Q9967

== ENCOUNTER → 2020-02-25 | Day surgery (SDC) | payer MEDICARE, BC ==
--- NOTE | 2020-02-23 16:26 | Diagnostic Imaging Report ---
EXAMINATION: CHEST 2 VIEWS INDICATION: Pre-operative COMPARISON: None FINDINGS: LINES/TUBES:None LUNGS:The lungs are well-inflated. No focal consolidation or pulmonary edema. PLEURA:No pleural effusion or pneumothorax. MEDIASTINUM:The cardiomediastinal silhouette appears normal in size and shape. Atherosclerotic calcifications of the thoracic aorta. BONES/SOFT TISSUES:No acute osseous injury. ABDOMEN:No free air under the diaphragm. Status post cholecystectomy. IMPRESSION: No focal pneumonia or pulmonary edema. Signed by: Ashanti López MD on 02/23/2020 4:22 PM
[2020-02-23 16:52] LABS: BASOPHILS % 0.6 % (0.0-1.0); EOSINOPHILS # (AUTO) 0.1 (0.0-0.4); EOSINOPHILS % 1.1 % (0.0-6.0); HEMATOCRIT 43.9 % (38.2-49.6); HEMOGLOBIN 14.8 g/dL (14.0-18.0); LYMPHOCYTES # (AUTO) 1.4 (1.0-3.2); LYMPHOCYTES % 26.1 % (18.0-39.1); MEAN CORPUSCULAR HEMOGLOBIN 31.6 pg (28-32); MEAN CORPUSCULAR HGB CONC 33.7 g/dL (31-35); MEAN CORPUSCULAR VOLUME 93.6 fL (81-99); MONOCYTES # (AUTO) 0.5 (0.2-0.8); MONOCYTES % 9.1 % (4.4-11.3); NEUTROPHILS # (AUTO) 3.4 (2.1-6.9); NEUTROPHILS % 62.9 % (38.7-80.0); PLATELET COUNT 237 x10e3/uL (140-360); RED BLOOD COUNT 4.69 x10e6/uL (4.3-5.7); RED CELL DISTRIBUTION WIDTH 11.9 % (11.7-14.4)
[2020-02-23 17:35] LABS: ANION GAP 11.8 mmol/L (8-16); BLOOD UREA NITROGEN 10 mg/dL (7-26); BUN/CREATININE RATIO 11 (6-25); CALCIUM 9.9 mg/dL (8.4-10.2); CARBON DIOXIDE 30 mmol/L (22-29); CHLORIDE 101 mmol/L (98-107); CREATININE, SERUM 0.95 mg/dL (0.72-1.25); EST GLOMERULAR FILTRATION RATE > 60 ML/MIN (60-); GLUCOSE 132 mg/dL (74-118); POTASSIUM 3.8 mmol/L (3.5-5.1); SODIUM 139 mmol/L (136-145)
[~2020-02-25] MED LIST changes: +ACETAMINOPHEN/CODEINE 300MG - 30MG TAB ONE; +B&O 60MG R/S 60 MG SUPP PR ONE; +DEXAMETHASONE SOD PHOS INJ 4 MG/ML VIAL ONE; +EPHEDRINE SULFATE INJ 50 MG/ML VIAL ONE; +FENTANYL CITRATE/PF 100MCG/2 ML INJ ONE; +GLYCOPYRROLATE INJ 0.2 MG/ML VIAL ONE; +IOPAMIDOL 300MG/ML 50ML INFUS..BTL IV ONE; -IOPAMIDOL 370 MG/ML 200 ML INFUS..BTL INJ ONE; +LIDOCAINE HCL 2% LOCAL INJ 5 ML SDV VIAL INJ ONE; +ONDANSETRON HCL INJ 2MG/ML 2ML 2 MG/ML VIAL ONE; +PIPER-TAZ 3.375 GM 0 ML ONE; +PIPER-TAZ 3.375 GM 50 ML ONE; +PROPOFOL IV EMULSION 10 MG/ML 20 ML VIAL ONE; +SEVOFLURANE INHAL SOLN 250 ML PEN BTL ONE; -SODIUM CHLORIDE 0.9% 250ML 250 ML ONE
[2020-02-25 14:30] VITALS: BP 140/85
--- NOTE | 2020-02-26 20:58 | Operative Report ---
DATE OF PROCEDURE: 02/25/2020 SURGEON: Kiet Recinos MD PREOPERATIVE DIAGNOSES: 1. Bladder stones. 2. Urinary tract infections. POSTOPERATIVE DIAGNOSES: 1. Bladder stones. 2. Urinary tract infections. 3. 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 OPERATIONS PERFORMED: 1. Cystourethroscopy with calibration and dilation of relatively wide fossa navicularis stricture (separate procedure performed for the diagnosis of stricture). 2. Cystolitholapaxy with laser for numerous bladder stones (separate procedure performed for the bladder stones with a total diameter well over 2.5 cm). 3. Cystourethroscopy with bilateral ureteral catheterization and retrograde ureteropyelography (separate procedure performed for the urinary tract infections). 4. Interpretation of retrograde ureteropyelography. 5. Interpretation of cystography. ANESTHESIA: General. COMPLICATIONS: None. CLINICAL SUMMARY: Yair Recinos is a 69-year-old man, who undergone previous transurethral resection procedure. The patient was noted to have urinary tract infection. Workup revealed bladder stones. He is brought to the operating room for the above procedures. The patient has a known 3 mm left upper pole renal stone. We planned to determine whether that is visible as well. He and his are aware of the risks of bleeding, infection, injury to adjacent structures, need for additional procedures, and elected to proceed. This procedure was done during the COVID-19 emergency due to the fact that the patient's stones pose a risk of growing his infections that relate to these stones as they are colonized with bacteria pose to him the risk of urosepsis. Therefore, this procedure is absolutely indicated despite the COVID-19 emergency. During the procedure, it was very obvious that the patient's obstructing ureteral stones make this procedure a true emergency. OPERATIVE PROCEDURE IN DETAIL: Informed consent was verified. Yair recinos was properly identified taken to the operating room, placed on the cystoscopy table in supine position, and anesthesia was uneventfully begun. The patient was then carefully and gently repositioned in dorsal lithotomy position with all pressure points well padded. His genitalia were prepared and draped in usual sterile fashion. A 22.5-Nigerien cystoscope sheath with the visual obturator in place was atraumatically inserted into the patient's urethral meatus and beyond that, there was resistance. We could palpate a hard substance at the level of the distal urethra near the puentes of the glans penis. We utilized female sounds to calibrate the patient's fossa navicularis to 18-Nigerien in size, progressively dilated it to 26-Nigerien in size. We then easily able to place the cystoscope sheath into the patient's urethra with the visual obturator and noticed that there were 2 ureteral stones that were ball valving at the level of this relatively wide caliber fossa navicularis stricture. As we irrigated with the cystoscope, we flushed the stones in a retrograde fashion toward the patient's bladder. We then traversed through the otherwise wide open urethra through the normal sphincteric region through the prostate bed, which was wide open and fully reepithelialized following previous transurethral resection. There was no obstruction at the level of the prostate. We entered the patient's bladder, where panendoscopy revealed countless stones. There were no tumors. There were no suspicious lesions. There were at least grade 2 trabeculations noted. A ureteral catheter was used to cannulate each ureter and retrograde ureteropyelograms were performed. Interpretation of retrograde ureteropyelography contrast was instilled in retrograde fashion bilaterally. There was no hydronephrosis. Unobstructed drainage was observed bilaterally fluoroscopically. I could not visualize the 3 mm stone known to be in the upper pole calyx from our CT evaluation. Unobstructed drainage was observed bilaterally fluoroscopically. The 1000 micron fiber was then utilized to perform holmium laser lithotripsy of the countless stones in the patient's bladder. Once all stones were fragmented into smaller fragments and sand, we irrigated out all visible stone debris, only fine sand that was embedded in the mucosa remained. There was significant inflammation of the bladder from this procedure. The inflammation was exacerbated with the fact that these were multiple small stones as opposed to 1 large bladder stone and these small stones were in proximity to the mucosa as we performed laser, although we never laser directly into the mucosa. The smaller stones balanced vigorously upon fragmentation. The continuous-flow cystoscope was withdrawn. A Gibbs catheter was then placed. It was irrigated to and fro to ensure it worked properly. Contrast was then injected into the Gibbs catheter to perform cystography. Interpretation of cystography contrast was injected via the Gibbs catheter. The bladder wall was trabeculated with no vesicoureteral reflux. Gibbs catheter balloon was in excellent position within the bladder. There was a transurethral resection defect noted within the prostate bed. The patient's bladder was drained, cystoscope was withdrawn, and the patient was uneventfully reversed from anesthesia and taken to recovery in stable condition. An explicit postoperative instructions were given. We will follow the patient in the office. Kiet MD Jorje OH/MODL /[id number] cc: Onel Rolle MD
== END | disposition home or self-care (01) ==
LOC: OR 08:45
PROVIDERS: ATTEND Urology
DX: N21.0 Calculus in bladder (principal); N20.1 Calculus of ureter; N39.0 Urinary tract infection, site not specified; N35.919 Unspecified urethral stricture, male, unspecified site; N32.89 Other specified disorders of bladder; N40.1 Benign prostatic hyperplasia with lower urinary tract symptoms; R39.14 Feeling of incomplete bladder emptying; R81 Glycosuria; R80.9 Proteinuria, unspecified; R97.20 Elevated prostate specific antigen [PSA]; N32.81 Overactive bladder; N39.41 Urge incontinence; E11.9 Type 2 diabetes mellitus without complications; I10 Essential (primary) hypertension; H54.7 Unspecified visual loss; E78.5 Hyperlipidemia, unspecified; Z88.1 Allergy status to other antibiotic agents; Z88.8 Allergy status to other drugs, medicaments and biological substances; Z01.810 Encounter for preprocedural cardiovascular examination; Z01.818 Encounter for other preprocedural examination; Z79.84 Long term (current) use of oral hypoglycemic drugs; Z87.01 Personal history of pneumonia (recurrent); Z80.42 Family history of malignant neoplasm of prostate
CPT/HCPCS: 36415 ×2; 52005; 52318; 71046; 74420; 80048; 82948; 83970; 84550; 85025; 88300; 93005; J1100; J2001; J2405; J2543; J2704; J3010; Q9967

== ENCOUNTER 2020-02-28 16:11 | Inpatient (IN) | payer MEDICARE, BC ==
[~2020-02-28] VITALS: Ht 177.8 cm; Wt 66.2 kg
[~2020-02-28 16:11] MED LIST changes: -ACETAMINOPHEN/CODEINE 300MG - 30MG TAB ONE; -B&O 60MG R/S 60 MG SUPP PR ONE; -CIPROFLOXACIN250 MG PO; -DEXAMETHASONE SOD PHOS INJ 4 MG/ML VIAL ONE; -EPHEDRINE SULFATE INJ 50 MG/ML VIAL ONE; -FENTANYL CITRATE/PF 100MCG/2 ML INJ ONE; -GLYCOPYRROLATE INJ 0.2 MG/ML VIAL ONE; -IOPAMIDOL 300MG/ML 50ML INFUS..BTL IV ONE; -LIDOCAINE HCL 2% LOCAL INJ 5 ML SDV VIAL INJ ONE; -ONDANSETRON HCL INJ 2MG/ML 2ML 2 MG/ML VIAL ONE; -PHENAZOPYRIDIN100 MG PO; -PIPER-TAZ 3.375 GM 0 ML ONE; -PIPER-TAZ 3.375 GM 50 ML ONE; -PROPOFOL IV EMULSION 10 MG/ML 20 ML VIAL ONE; -SEVOFLURANE INHAL SOLN 250 ML PEN BTL ONE; -TYLENOL # 31 EA PO
--- NOTE | 2020-02-28 18:26 | Diagnostic Imaging Report ---
History:Syncope Comparison studies: None Technique: Axial images were obtained from the skull base to the vertex. Coronal and sagittal images reconstructed from the axial data. Dose modulation, iterative reconstruction, and/or weight based adjustment of the mA/kV was utilized to reduce the radiation dose to as low as reasonably achievable. Intravenous contrast: None Findings: Scalp/skull: No abnormalities. Extra-axial spaces: No masses. No fluid collections. Brain sulci: Moderately prominent. Ventricles: Moderate compensatory dilatation especially in the atria and occipital horns. No hydrocephalus. Parenchyma: Subtle hypodensities in the supratentorial white matter are small vessel ischemic changes. No masses, hemorrhage, acute or chronic cortical vascular insults. Sellar/suprasellar region: No abnormalities. Craniocervical junction: Patent foramen magnum. No Chiari one malformation. Incidental findings: Subtle calcifications in the carotid siphons the intradural vertebral arteries. Impression: No acute abnormalities. Chronic findings: 1. Moderate generalized volume loss. 2. Mild supratentorial white matter small vessel ischemic changes. Signed by: Dr. Avery Novak M.D. on 02/28/2020 6:23 PM
--- NOTE | 2020-02-28 18:28 | NUR ---
client blood sent to lab.
[2020-02-28 18:39] LABS: BASOPHILS % 0.1 % (0.0-1.0); EOSINOPHILS # (AUTO) 0.1 (0.0-0.4); EOSINOPHILS % 0.6 % (0.0-6.0); HEMATOCRIT 41.1 % (38.2-49.6); LYMPHOCYTES # (AUTO) 0.7 (1.0-3.2); LYMPHOCYTES % 7.4 % (18.0-39.1); MEAN CORPUSCULAR HEMOGLOBIN 31.7 pg (28-32); MEAN CORPUSCULAR HGB CONC 34.1 g/dL (31-35); MEAN CORPUSCULAR VOLUME 93.2 fL (81-99); MONOCYTES # (AUTO) 0.6 (0.2-0.8); MONOCYTES % 5.8 % (4.4-11.3); NEUTROPHILS # (AUTO) 8.2 (2.1-6.9); NEUTROPHILS % 85.6 % (38.7-80.0); PLATELET COUNT 201 x10e3/uL (140-360); RED BLOOD COUNT 4.41 x10e6/uL (4.3-5.7); RED CELL DISTRIBUTION WIDTH 11.9 % (11.7-14.4)
[2020-02-28 18:57] LABS: ALANINE AMINOTRANSFERASE 19 IU/L (0-55); ALBUMIN 3.7 g/dL (3.5-5.0); ALBUMIN/GLOBULIN RATIO 1.2 (0.8-2.0); ALKALINE PHOSPHATASE 49 IU/L (40-150); ANION GAP 10.2 mmol/L (8-16); BLOOD UREA NITROGEN 7 mg/dL (7-26); BUN/CREATININE RATIO 8 (6-25); CALCIUM 9.7 mg/dL (8.4-10.2); CARBON DIOXIDE 27 mmol/L (22-29); CHLORIDE 106 mmol/L (98-107); CREATINE KINASE 71 IU/L (30-200); CREATININE, SERUM 0.85 mg/dL (0.72-1.25); EST GLOMERULAR FILTRATION RATE > 60 ML/MIN (60-); GLUCOSE 98 mg/dL (74-118); POTASSIUM 4.2 mmol/L (3.5-5.1); SODIUM 139 mmol/L (136-145)
[2020-02-28] MEDS ORDERED: PHENAZOPYRIDIN100 MG PO (20:38)
[2020-02-28] MEDS ORDERED: TYLENOL # 31 EA PO (20:39)
[2020-02-28] MEDS ORDERED: CIPROFLOXACIN250 MG PO (20:39)
[2020-02-28 21:00] VITALS: BP 117/59
--- NOTE | 2020-02-28 21:00 | NUR ---
Patient arrived to the unit from ED as a new admit. Pt alert and oriented x1 (self). Gibbs catheter in place (per urology) and urine output is orange in color due to Pyridium intake. Pt has generalized weakness especially on BLE. Call degroot within reach. Bed alarm active. Pt comfortable in bed. Pt has slow accomodation on both eyes but pupils egual and reactive to light.
[2020-02-28 21:02] LABS: CLARITY,URINE SL CLOUDY (CLEAR); COLOR,URINE YELLOW (YELLOW); KETONES,URINE NEGATIVE (NEGATIVE); LEUKOCYTE ESTERASE ,URINE SMALL (NEGATIVE); NITRITE,URINE POSITIVE (NEGATIVE); PROTEIN,URINE DIPSTICK 1+ (NEGATIVE)
[2020-02-28 21:03] LABS: BILIRUBIN,URINE NEGATIVE (NEGATIVE); URINE UROBILINOGEN 1 mg/dL (0.2 - 1)
[2020-02-28 21:15] LABS: BACTERIA,URINE MODERATE /HPF; EPITHELIAL CELLS,URINE RARE /LPF
--- NOTE | 2020-02-28 21:26 | NUR ---
Verified with Juanpablo Zepeda (ER nurse) that he called and notified Dr. Kiet Recinos of the new consult to see patient. Reason for consult was hematuria. Although current urine output is orange in color and no sign of hematuria at this time. MD aware and will see pt tomorrow.
[2020-02-28 21:30] VITALS: BP 117/59
--- NOTE | 2020-02-28 21:30 | NUR ---
Nurse (Zachary) called and spoke to patient's (Lilian De La Rosa) to obtain medical information about patient since patient is a poor historian.
[2020-02-28] MEDS: PHENAZOPYRIDINE HCL 100 MG TAB PO SCH (22:10)
[2020-02-29] VITALS (8 sets, daily range): BP systolic 108–131; BP diastolic 69–80
[2020-02-29 04:39] LABS: CREATINE KINASE 76 IU/L (30-200)
[2020-02-29 05:34] LABS: BASOPHILS % 0.1 % (0.0-1.0); EOSINOPHILS # (AUTO) 0.1 (0.0-0.4); EOSINOPHILS % 2.1 % (0.0-6.0); HEMATOCRIT 35.4 % (38.2-49.6); HEMOGLOBIN 12.2 g/dL (14.0-18.0); LYMPHOCYTES # (AUTO) 1.3 (1.0-3.2); MEAN CORPUSCULAR HEMOGLOBIN 31.7 pg (28-32); MEAN CORPUSCULAR HGB CONC 34.5 g/dL (31-35); MEAN CORPUSCULAR VOLUME 91.9 fL (81-99); MONOCYTES # (AUTO) 0.5 (0.2-0.8); MONOCYTES % 8.1 % (4.4-11.3); NEUTROPHILS # (AUTO) 4.7 (2.1-6.9); NEUTROPHILS % 69.6 % (38.7-80.0); PLATELET COUNT 187 x10e3/uL (140-360); RED BLOOD COUNT 3.85 x10e6/uL (4.3-5.7); RED CELL DISTRIBUTION WIDTH 11.9 % (11.7-14.4)
[2020-02-29 05:50] LABS: CREATINE KINASE 191 IU/L (30-200)
[2020-02-29 06:23] LABS: ALANINE AMINOTRANSFERASE 16 IU/L (0-55); ALBUMIN 3.3 g/dL (3.5-5.0); ALBUMIN/GLOBULIN RATIO 1.2 (0.8-2.0); ALKALINE PHOSPHATASE 43 IU/L (40-150); ANION GAP 10.5 mmol/L (8-16); BLOOD UREA NITROGEN 8 mg/dL (7-26); BUN/CREATININE RATIO 11 (6-25); CALCIUM 8.9 mg/dL (8.4-10.2); CARBON DIOXIDE 23 mmol/L (22-29); CHLORIDE 108 mmol/L (98-107); CREATININE, SERUM 0.74 mg/dL (0.72-1.25); EST GLOMERULAR FILTRATION RATE > 60 ML/MIN (60-); GLUCOSE 114 mg/dL (74-118); POTASSIUM 3.5 mmol/L (3.5-5.1); SODIUM 138 mmol/L (136-145)
[2020-02-29] MEDS: PHENAZOPYRIDINE HCL 100 MG TAB PO SCH ×3 (08:12→16:25)
[2020-02-29] MEDS: PIPERACILLIN/TAZO 2.25 GM 50 ML IV SCH ×3 (09:52→22:50)
--- NOTE | 2020-02-29 13:20 | NUR ---
Pt. expressed no spiritual or emotional concerns at this time. Tubing Tester provided hospitality and information on how to reach credit checker, if needed. No need to follow at this time. AYESHA GARCIA Tubing Tester Spiritual Care Department O: [phone]
[2020-02-29 13:57] LABS: CREATINE KINASE 97 IU/L (30-200)
--- NOTE | 2020-02-29 19:00 | NUR ---
Pt visited in room during nursing rounds. Patient alert and oriented x1-2. Pt still having slow accomodation on gaze for both eyes. Pt has generalized weakness especially on BLE. On scheduled IV antibiotic treatment. Gibbs catheter in place draining dark orange urine due to Pyridium intake. Will monitor pt closely. Bed alarm active.
[2020-02-29] MEDS ORDERED: SODIUM CHLORIDE 0.9% 250ML 250 ML ONE (22:40)
[2020-03-01] VITALS (8 sets, daily range): BP systolic 118–150; BP diastolic 67–82
--- NOTE | 2020-03-01 03:00 | NUR ---
Patient pulled out peripheral IV (20g on LAC) and telemetry leads. Pt re-oriented and pleasantly complied and apologized. Pt stated he did not know what happened. Pt was repositioned in bed. Plan to re-start new peripheral IV.
[2020-03-01] MEDS: PIPERACILLIN/TAZO 2.25 GM 50 ML IV SCH ×4 (04:10→22:30)
--- NOTE | 2020-03-01 07:00 | NUR ---
BEDSIDE SHIFT REPORT RECEVIED PT IN STABLE CONDITION, DENIES PAIN AT THIS TIME, CORNELL TO BSD WITH YELLOW URINE NOTED, L FA 20G NO SS OF INFILTRATION NOTED, NO OTHER CO VOCIED CALL LIGHT IN REACH WILL CONTINUE TO MONITOR
[2020-03-01] MEDS: TERBINAFINE 250 MG TAB PO SCH (08:37)
[2020-03-01] MEDS: METFORMIN HCL 500 MG TAB PO SCH (08:37)
[2020-03-01] MEDS: VALSARTAN 160 MG TAB PO SCH (08:37)
[2020-03-01] MEDS: PHENAZOPYRIDINE HCL 100 MG TAB PO SCH ×3 (08:38→20:26)
--- NOTE | 2020-03-01 17:39 | NUR ---
Nutrition Screen Note RD Recommendation for Physician: - Continue current diet as tolerated Plan of Care: RD following, monitoring for tolerance and adequacy Nutrition reason for involvement: Nutrition Risk Trigger Primary Diagnose(s): syncope and collapse PMH: no H&P available Ht: 70 in Wt: 146.01 lb BMI: 21 kg/m2 IBW: [address] Assessment: (03/01) 69 YOM admitted for syncope and collapse, seen today per MST2 screen. Pt reports good appetite and po intake SAS ANALYST. Pt can not recall UBW, denies wt loss. Pt appears well nourished. Pt unable to appropriately answer most questions asked. Noted 60% intake of lunch tray. Chart reviewed. Labs and meds reviewed. Will continue to monitor. Current Diet: Cardiac Malnutrition Evaluation (03/01/20) The patient does not meet criteria for a specified degree of malnutrition at this time. Will re-evaluate at follow-up as appropriate. Energy intake: Pt reports good po intake SAS ANALYST Weight loss: DONATO, pt can not recall UBW Fat loss: None, chest well developed Muscle loss: Mild, clavicle visible Supporting Evidence: Fluid accumulation: none observed Functional Status: unable to evaluate Diet Education Needs Assessment: Diet education not indicated. Diet tolerance: tolerating po Nutrition Care Level: low Signed: Shantell Bob RD, LD, [facility]
[2020-03-01] MEDS: ATORVASTATIN 20 MG TAB PO SCH ×2 (20:30)
[2020-03-02] VITALS (8 sets, daily range): BP systolic 113–147; BP diastolic 68–86
[2020-03-02] MEDS: PIPERACILLIN/TAZO 2.25 GM 50 ML IV SCH ×4 (03:49→22:11)
[2020-03-02 05:22] LABS: BASOPHILS % 0.3 % (0.0-1.0); EOSINOPHILS # (AUTO) 0.1 (0.0-0.4); EOSINOPHILS % 1.4 % (0.0-6.0); HEMATOCRIT 36.3 % (38.2-49.6); HEMOGLOBIN 12.3 g/dL (14.0-18.0); LYMPHOCYTES # (AUTO) 1.4 (1.0-3.2); LYMPHOCYTES % 17.9 % (18.0-39.1); MEAN CORPUSCULAR HEMOGLOBIN 30.8 pg (28-32); MEAN CORPUSCULAR HGB CONC 33.9 g/dL (31-35); MONOCYTES # (AUTO) 0.6 (0.2-0.8); MONOCYTES % 7.6 % (4.4-11.3); NEUTROPHILS # (AUTO) 5.7 (2.1-6.9); NEUTROPHILS % 72.5 % (38.7-80.0); PLATELET COUNT 199 x10e3/uL (140-360); RED BLOOD COUNT 3.99 x10e6/uL (4.3-5.7); RED CELL DISTRIBUTION WIDTH 11.9 % (11.7-14.4)
[2020-03-02 05:45] LABS: ANION GAP 10.4 mmol/L (8-16); BLOOD UREA NITROGEN 10 mg/dL (7-26); BUN/CREATININE RATIO 14 (6-25); CALCIUM 8.6 mg/dL (8.4-10.2); CARBON DIOXIDE 23 mmol/L (22-29); CHLORIDE 106 mmol/L (98-107); CREATININE, SERUM 0.74 mg/dL (0.72-1.25); EST GLOMERULAR FILTRATION RATE > 60 ML/MIN (60-); GLUCOSE 104 mg/dL (74-118); POTASSIUM 3.4 mmol/L (3.5-5.1); SODIUM 136 mmol/L (136-145)
--- NOTE | 2020-03-02 07:00 | NUR ---
BEDSIDE SHIFT REPORT RECEIVED PT IN STABLE CONDITION, DENIES PAIN AT THIS TIME. UPDATED ON POC, L FA 20G NO SS OF INFILTRATION NOTED, NO OTHER CO VOICED CALL LIGHT IN REACH WILL CONTINUE TO MONITOR
--- NOTE | 2020-03-02 07:19 | NUR ---
REPORT GIVEN TO DAYSHIFT NURSE. NO ADVERSE SIGNS TO L FA IV. NO ADVERSE SIGNS TO CORNELL. AAOX3. RESTING IN BED. BED LOCKED AND IN LOW POSITION. CALL LIGHT WITHIN REACH.
[2020-03-02] MEDS: METFORMIN HCL 500 MG TAB PO SCH (08:02)
[2020-03-02] MEDS: VALSARTAN 160 MG TAB PO SCH (08:02)
[2020-03-02] MEDS: TERBINAFINE 250 MG TAB PO SCH (08:02)
[2020-03-02] MEDS: PHENAZOPYRIDINE HCL 100 MG TAB PO SCH ×3 (08:08→21:46)
--- NOTE | 2020-03-02 08:13 | NUR ---
SHOWER GIVEN AND LINENS CHANGED
--- NOTE | 2020-03-02 10:13 | NUR ---
SPOKE WIHT WHOM AGREED TO [facility] FOR SNF COMPLETED FORM AND WILL FAX CLINICALS TO FACILITY.
--- NOTE | 2020-03-02 11:38 | NUR ---
FAXED TO [facility] COMPLETED COVID FORM., RTF AND IMM ALL PUT IN CHART AND PACKET FOR COMPLETION OF TRANSFER.
--- NOTE | 2020-03-02 14:45 | NUR ---
DAUGHTER IN LAW LASHAY SANTILLAN WORKS AT [facility] AND CALLED STATING OF PT GOT CONFUSED AND THOUGHT PT NEEDED [facility], EXPLAINED THAT PER PT NOTE 200 FEET WITH ASSIST FOR BLINDNESS AND IV ABX IS WHAT SET CRITERIA FOR SNF, SHE STATES SHE UNDERSTANDS AND AGREES WITH [facility], SHE STATES IF ANY MORE QUESTIONS CAN CALL HER.
--- NOTE | 2020-03-02 16:13 | NUR ---
NOTIFIED THAT IF NO FEVER OR GROWTH AFTER 3 DAYS ABX ARE PREVENTATIVE AND WILL NOT MEET CRITERIA, SPOKE WITH MD, AND LET KNOW HE STATED WITH THE HEMATURIA UPON ADMISSION IT SHOULD QUALIFY WITH THE SYNCOPAL EPISODE. FAXED ED T SHEET AND WILL FOLLOW UP IN AM, WILL CHECK WITH DR FLANAGAN IN AM FOR FURTHER INSTRUCTION, MAY PROCEED WITH A DIFFERENT FACILITY.
[2020-03-02] MEDS: ATORVASTATIN 20 MG TAB PO SCH (21:46)
[2020-03-03] VITALS: BP 147/81
[2020-03-03 04:00] VITALS: BP 129/87
[2020-03-03] MEDS: PIPERACILLIN/TAZO 2.25 GM 50 ML IV SCH ×2 (05:26→10:36)
--- NOTE | 2020-03-03 06:00 | NUR ---
PROVIDED URINARY CATHETER CARE VIA CASTILE WIPES. TOLERATED WELL. NO ADVERSE SIGNS.
--- NOTE | 2020-03-03 07:19 | NUR ---
BEDSIDE SHIFT REPORT GIVEN. PATIENT IN STABLE CONDITION. NO SIGNS OR SYMPTOMS OF DISTRESS NOTED.
--- NOTE | 2020-03-03 07:34 | NUR ---
ASSUMED CARE. ACYANOTIC. RESTING IN BED. AWAKE AND ALERT. NO DISTRESS NOTED. CALL LIGHT IN REACH. SIDE RAILS UP X2.
[2020-03-03 07:44] VITALS: BP 114/69
[2020-03-03] MEDS: METFORMIN HCL 500 MG TAB PO SCH (08:40)
[2020-03-03] MEDS: TERBINAFINE 250 MG TAB PO SCH (08:40)
[2020-03-03] MEDS: PHENAZOPYRIDINE HCL 100 MG TAB PO SCH ×2 (08:40→15:18)
[2020-03-03] MEDS: VALSARTAN 160 MG TAB PO SCH (08:40)
[2020-03-03 08:59] VITALS: BP 114/69
--- NOTE | 2020-03-03 09:33 | NUR ---
FAXED TODAY'S NOTE TO SEE IF ABLE TO ASSIST WITH THE SNF TO FACILITY
[2020-03-03 11:52] VITALS: BP 132/79
--- NOTE | 2020-03-03 12:33 | NUR ---
SPOKE WITH 2 MD'S ON CARE CALLED DAUGHTER IN LAW LASHAY MONDRAGON AGREED TO MEDICAL RESORT, WAS IN PROCESS OF FAXING AND SHE CALLED BACK AND ASKED IF HE CAN GO HOME WITH HOME IV ABX. SHE STATES SHE IS A NURSE AND WORKS AT [facility] AND CAN ADMINISTER HERSELF AND STAY HOME WITH THEM TO ASSIST WITH HIS CARE. GAVE INFORMATION TO NURSE TO ASK DR IF CAN GET ORDER. WILL FOLLOW
--- NOTE | 2020-03-03 14:01 | NUR ---
CM CALLED DR Ruddy FLANAGAN TO MAKE HIM AWARE OF PT'S DTR REFUSING FOR PT TO GO TO SNF DISCHARGE ORDER REC'D CM INQUIRED TO WHAT ABX PT NEEDS UPON DISCHARGE AND DR Ruddy FLANAGAN STATES, "NONE", JUST F/U WITH DR BRAYDON AMBROSIO CM CALLED DTR LASHAY MONDRAGON [phone] EXPLAINED TO HER THAT PER DR Ruddy FLANAGAN PT CAN BE DISCHARGED WITHOUT ABX AND F/U WITH PULMONARY SHE AGREES AND UNDERSTANDS INFORMED NURSE THAT PT IS DISCHARGED AND TO CALL FAMILY WHEN SHE IS READY TO PICK PT UP
[2020-03-03 15:48] VITALS: BP 127/71
== END 2020-03-03 16:00 | disposition home or self-care (01) | DRG 689 ==
LOC: ER 16:11 → ERHOLD 18:02 → MED/SURG 21:10 → OBSVTOIN 03-01 09:20
PROC: 05HY33Z Insertion of Infusion Device into Upper Vein, Percutaneous Approach (ICD-10-PCS; principal; 2020-03-02)
DX: N39.0 Urinary tract infection, site not specified (principal); G93.41 Metabolic encephalopathy; F03.90 Unspecified dementia, unspecified severity, without behavioral disturbance, psychotic disturbance, mood disturbance, and anxiety; E11.9 Type 2 diabetes mellitus without complications; N20.0 Calculus of kidney; E87.6 Hypokalemia; D64.9 Anemia, unspecified
CPT/HCPCS: 36415; 70450; 80048; 80053; 81001; 82550; 82553; 82948; 84484; 85025; 87086; 93005; 97139; 99284; G0378; J2543; J7050

== ENCOUNTER → 2021-10-05 | Outpatient (CLI) | payer MEDICARE, BC ==
[~2021-10-05] MED LIST changes: +CIPROFLOXACIN250 MG PO; +PHENAZOPYRIDIN100 MG PO; +TYLENOL # 31 EA PO
== END ==
LOC: US 11:34
PROVIDERS: ATTEND Urology
DX: R31.21 Asymptomatic microscopic hematuria (principal)
CPT/HCPCS: 74018; 76770; 76857

== ENCOUNTER 2022-06-18 17:32 | Inpatient (IN) | payer MEDICARE, BC ==
[~2022-06-18] VITALS: Ht 177.8 cm; Wt 58.3 kg
[2022-06-18 18:30] LABS: BASOPHILS % 0.3 % (0.0-1.0); EOSINOPHILS % 0.4 % (0.0-6.0); HEMATOCRIT 44.8 % (38.2-49.6); HEMOGLOBIN 14.7 g/dL (14.0-18.0); LYMPHOCYTES % 14.1 % (18.0-39.1); MEAN CORPUSCULAR HEMOGLOBIN 31.7 pg (28-32); MEAN CORPUSCULAR HGB CONC 32.8 g/dL (31-35); MEAN CORPUSCULAR VOLUME 96.8 fL (81-99); MONOCYTES # (AUTO) 0.4 (0.2-0.8); NEUTROPHILS # (AUTO) 5.5 (2.1-6.9); NEUTROPHILS % 79.1 % (38.7-80.0); PLATELET COUNT 195 x10e3/uL (140-360); RED BLOOD COUNT 4.63 x10e6/uL (4.3-5.7)
[2022-06-18 18:49] LABS: ALBUMIN 4.1 g/dL (3.5-5.0); ALBUMIN/GLOBULIN RATIO 1.2 (0.8-2.0); ANION GAP 14.2 mmol/L (8-16); CALCIUM 9.4 mg/dL (8.4-10.2); CREATININE, SERUM 0.81 mg/dL (0.72-1.25); POTASSIUM 4.2 mmol/L (3.5-5.1)
[2022-06-18] MEDS ORDERED: ONDANSETRON HCL INJ 2MG/ML 2ML 2 MG/ML VIAL IV PRN (20:45)
[2022-06-18] MEDS ORDERED: SODIUM CHLORIDE 0.9% 1000ML 1,000 ML IV SCH (20:45)
[2022-06-18] MEDS ORDERED: Morphine 2mg Syringe 2 MG/ML SYR IV PRN (20:45)
[2022-06-18 20:49] LABS: CLARITY,URINE CLOUDY (CLEAR); COLOR,URINE YELLOW (YELLOW); KETONES,URINE NEGATIVE (NEGATIVE); LEUKOCYTE ESTERASE ,URINE 1+ (NEGATIVE); NITRITE,URINE POSITIVE (NEGATIVE); PROTEIN,URINE DIPSTICK 1+ (NEGATIVE); URINE UROBILINOGEN 1 mg/dL (0.2 - 1)
[2022-06-18] MEDS: METRONIDAZOLE 500MG/NS 100ML 100 ML IV SCH ×2 (21:00→22:21)
[2022-06-18 21:15] LABS: BACTERIA,URINE MANY /HPF; WBC,URINE (MAN) >50 /HPF (0-5)
[2022-06-18 21:17] LABS: EPITHELIAL CELLS,URINE FEW /LPF
[2022-06-18 21:24] LABS: AMORPHOUS SEDIMENT,URINE MODERATE (FEW); RENAL EPITHELIAL CELLS,URINE FEW; TRANSITIONAL EPI CELLS,URINE FEW
[2022-06-18] MEDS ORDERED: MELATONIN 5 MG TABLET PO PRN (23:30)
[2022-06-18] MEDS ORDERED: HYDRALAZINE HCL 20 MG/ML VIAL IV PRN (23:30)
[2022-06-18] MEDS ORDERED: DEXTROSE 50% SYRINGE 50 ML IV PRN (23:30)
[2022-06-18] MEDS ORDERED: DIPHENHYDRAMINE HCL 25 MG CAP PO PRN (23:30)
[2022-06-18] MEDS ORDERED: BENZONATATE 100 MG CAP PO PRN (23:30)
[2022-06-18] MEDS ORDERED: POTASSIUM CHLORIDE 20 MEQ TAB CR PO PRN (23:30)
[2022-06-18] MEDS ORDERED: ACETAMINOPHEN 325 MG TAB PO PRN (23:30)
[2022-06-18] MEDS ORDERED: DOCUSATE SODIUM 100 MG CAP PO PRN (23:30)
[2022-06-18] MEDS ORDERED: SIMETHICONE 80 MG CHEW PO PRN (23:30)
[2022-06-18] MEDS ORDERED: ALBUTEROL/IPRATROPIUM 3 ML NEB NEB PRN (23:30)
[2022-06-18] MEDS ORDERED: LIDOCAINE 4% PATCH TP PRN (23:30)
[2022-06-18 23:50] VITALS: BP 97/85
[2022-06-18 23:55] VITALS: BP 97/85
[2022-06-19] VITALS (8 sets, daily range): BP systolic 105–127; BP diastolic 43–71
[2022-06-19] MEDS: DEXTROSE 5%/0.9% SOD CHL 1,000 ML IV SCH ×4 (00:41→21:54)
[2022-06-19 04:53] LABS: BASOPHILS % 0.2 % (0.0-1.0); EOSINOPHILS # (AUTO) 0.1 (0.0-0.4); EOSINOPHILS % 1.3 % (0.0-6.0); HEMATOCRIT 37.1 % (38.2-49.6); HEMOGLOBIN 12.4 g/dL (14.0-18.0); LYMPHOCYTES # (AUTO) 1.4 (1.0-3.2); LYMPHOCYTES % 23.6 % (18.0-39.1); MEAN CORPUSCULAR HEMOGLOBIN 31.4 pg (28-32); MEAN CORPUSCULAR HGB CONC 33.4 g/dL (31-35); MEAN CORPUSCULAR VOLUME 93.9 fL (81-99); MONOCYTES # (AUTO) 0.5 (0.2-0.8); MONOCYTES % 8.4 % (4.4-11.3); NEUTROPHILS # (AUTO) 3.9 (2.1-6.9); NEUTROPHILS % 66.2 % (38.7-80.0); PLATELET COUNT 144 x10e3/uL (140-360); RED BLOOD COUNT 3.95 x10e6/uL (4.3-5.7); RED CELL DISTRIBUTION WIDTH 11.9 % (11.7-14.4)
[2022-06-19 05:11] LABS: ALBUMIN 3.3 g/dL (3.5-5.0); ALBUMIN/GLOBULIN RATIO 1.2 (0.8-2.0); CALCIUM 8.9 mg/dL (8.4-10.2); CREATININE, SERUM 0.77 mg/dL (0.72-1.25)
[2022-06-19] MEDS: PANTOPRAZOLE SOD 40 MG TABEC PO SCH (07:30)
[2022-06-19] MEDS ORDERED: ENOXAPARIN SOD INJ 40 MG/0.4 ML SYR SC SCH (17:00)
[2022-06-19] MEDS ORDERED: MAGNESIUM HYDROXIDE 30 ML UDC PO ONE (18:00)
[2022-06-19] MEDS ORDERED: SOD PHOSPHATE/SOD BIPHOSPHATE ENEMA 132 ML BTL PR ONE (18:00)
[2022-06-20 05:02] VITALS: BP 130/76
[2022-06-20] MEDS: DEXTROSE 5%/0.9% SOD CHL 1,000 ML IV SCH ×2 (09:40→16:31)
[2022-06-20] MEDS: PANTOPRAZOLE SOD 40 MG TABEC PO SCH (09:40)
[2022-06-20 09:55] VITALS: BP 107/53
[2022-06-20] MEDS ORDERED: ONDANSETRON HCL 4 MG ORAL DISINTEGRATING TAB PO PRN (10:45)
[2022-06-20] MEDS: LACTULOSE SYRUP 20 GM/30 ML UDC PO SCH ×2 (13:30→16:31)
[2022-06-20] MEDS ORDERED: DOCUSATE SODIUM 100 MG CAP PO ONE (13:50)
[2022-06-20 13:52] VITALS: BP 117/80
[2022-06-20 18:22] VITALS: BP 131/74
[2022-06-20 19:41] VITALS: BP 107/79
[2022-06-20 19:44] VITALS: BP 107/79
[2022-06-21] VITALS (8 sets, daily range): BP systolic 109–142; BP diastolic 60–99
[2022-06-21] MEDS: DEXTROSE 5%/0.9% SOD CHL 1,000 ML IV SCH ×4 (00:41→23:04)
[2022-06-21] MEDS: PANTOPRAZOLE SOD 40 MG TABEC PO SCH (08:36)
[2022-06-21] MEDS: LACTULOSE SYRUP 20 GM/30 ML UDC PO SCH ×2 (08:36→16:29)
[2022-06-21] MEDS ORDERED: MAGNESIUM HYDROXIDE 30 ML UDC PO ONE (11:00)
[2022-06-22] VITALS: BP 125/80
[2022-06-22 04:00] VITALS: BP 125/80
[2022-06-22 05:25] LABS: BASOPHILS % 0.4 % (0.0-1.0); EOSINOPHILS # (AUTO) 0.2 (0.0-0.4); EOSINOPHILS % 3.4 % (0.0-6.0); HEMATOCRIT 38.7 % (38.2-49.6); HEMOGLOBIN 12.9 g/dL (14.0-18.0); LYMPHOCYTES # (AUTO) 1.4 (1.0-3.2); LYMPHOCYTES % 25.5 % (18.0-39.1); MEAN CORPUSCULAR HGB CONC 33.3 g/dL (31-35); MONOCYTES # (AUTO) 0.6 (0.2-0.8); MONOCYTES % 11.2 % (4.4-11.3); NEUTROPHILS # (AUTO) 3.2 (2.1-6.9); NEUTROPHILS % 59.3 % (38.7-80.0); PLATELET COUNT 151 x10e3/uL (140-360); RED BLOOD COUNT 4.03 x10e6/uL (4.3-5.7); RED CELL DISTRIBUTION WIDTH 11.8 % (11.7-14.4)
[2022-06-22 05:53] LABS: BLOOD UREA NITROGEN < 5 mg/dL (7-26); CALCIUM 8.5 mg/dL (8.4-10.2); CARBON DIOXIDE 27 mmol/L (22-29); CHLORIDE 108 mmol/L (98-107); CREATININE, SERUM 0.72 mg/dL (0.72-1.25); GLUCOSE 89 mg/dL (74-118); SODIUM 142 mmol/L (136-145)
[2022-06-22 05:54] LABS: BUN/CREATININE RATIO 7 (6-25)
[2022-06-22] MEDS: LACTULOSE SYRUP 20 GM/30 ML UDC PO SCH ×2 (08:31→17:31)
[2022-06-22] MEDS: PANTOPRAZOLE SOD 40 MG TABEC PO SCH (08:31)
[2022-06-22 08:48] VITALS: BP 123/84
[2022-06-22 09:36] VITALS: BP 123/84
[2022-06-22 12:28] VITALS: BP 126/61
[2022-06-22 16:20] VITALS: BP 116/84
== END 2022-06-22 17:57 | disposition home or self-care (01) | DRG 389 ==
LOC: ER 17:38 → ERHOLD 20:59 → MED/SURG 23:50 → MED/SURG2 06-21 17:12
PROVIDERS: ADMIT Internal Medicine; ATTEND Internal Medicine
DX: K56.41 Fecal impaction (principal); E44.1 Mild protein-calorie malnutrition; N39.0 Urinary tract infection, site not specified; Z68.1 Body mass index [BMI] 19.9 or less, adult; G30.9 Alzheimer's disease, unspecified; F02.80 Dementia in other diseases classified elsewhere, unspecified severity, without behavioral disturbance, psychotic disturbance, mood disturbance, and anxiety; K62.89 Other specified diseases of anus and rectum; I10 Essential (primary) hypertension; N21.0 Calculus in bladder; N20.0 Calculus of kidney; E78.00 Pure hypercholesterolemia, unspecified; E11.9 Type 2 diabetes mellitus without complications; Z87.440 Personal history of urinary (tract) infections; Z88.1 Allergy status to other antibiotic agents; Z88.8 Allergy status to other drugs, medicaments and biological substances
CPT/HCPCS: 36415; 74176; 80048; 80053; 81001; 83690; 83735; 85025; 94799; 99251; 99284; J2543; J7030; J7042